=== PATIENT | male | born 1950 | race Caucasian/White ===

== ENCOUNTER 2023-04-23 08:33 | Outpatient (CLI) | payer OTHER ==
[~2023-04-23] VITALS: Ht 185.4 cm; Wt 75.7 kg
[2023-04-23] MEDS ORDERED: albuterol 2.5 MG/3 ML nebule NEB ONE (09:05)
[2023-04-23 09:09] VITALS: PULSE 99; RESP 16; O2SAT 98
[2023-04-23 10:33] LABS: ALANINE AMINOTRANSFERASE 17 U/L (12-78); ALBUMIN 3.5 G/DL (3.4-5.0); ALKALINE PHOSPHATASE 57 IU/L (46-116); ANION GAP 7 (8-16); ASPARTATE AMINO TRANSFERASE 16 U/L (10-37); BILIRUBIN,TOTAL 0.6 MG/DL (0.1-1.0); BLOOD UREA NITROGEN 19 MG/DL (7-18); BUN/CREATININE RATIO 15.8 (10.0-20.0); CHLORIDE 102 MMOL/L (99-107); POTASSIUM 3.7 MMOL/L (3.5-5.1); SODIUM 138 MMOL/L (135-145); TOTAL CARBON DIOXIDE 29.1 MMOL/L (24-32); eCRCL 58 ML/MIN; eGFR 59 ML/MIN
[2023-04-23 10:45] LABS: GLUCOSE 101 MG/DL (70-104)
== END 2023-04-23 23:59 | disposition home or self-care (01) ==
LOC: RT 08:33
PROVIDERS: ATTEND Chiropractor
DX: J44.9 Chronic obstructive pulmonary disease, unspecified (principal); D47.2 Monoclonal gammopathy
CPT/HCPCS: 36415; 71046; 80053; 94060; 94760

== ENCOUNTER 2025-03-23 11:00 | Day surgery (SDC) | payer MEDICARE, OTHER ==
[2025-03-23] MEDS ORDERED: CETI10TA19 PO (12:00)
[2025-03-23] MEDS ORDERED: MULT-227 PO (12:00)
[2025-03-23] MEDS ORDERED: MELA1TAB52 PO (12:00)
[2025-03-23] MEDS ORDERED: SAW PALMETTO PO (12:00)
[2025-03-23] MEDS ORDERED: FISH OIL PO (12:00)
[2025-03-23] MEDS ORDERED: CYAN10007 INJ (12:03)
[2025-03-23 12:30] VITALS: RESP 15; O2SAT 96
[2025-03-23 14:15] VITALS: BP 144/91; PULSE 88; RESP 14; O2SAT 94
--- NOTE | 2025-03-23 14:23 | PROGRESS NOTE ---
H&P - Interval Note Providers to CC ~ Patient examined and condition: Yes Interval changes as follows: Paper H and P now in chart today, left mid thyroid nodule TRADS 4 measures 2.8cm max dimension. Risks benefits alt of FNA D/W patient and informed consent disclosed. Note he has a 2.3 cm RIGHT thyroid nodule TRADS 3 that is in criteria for observation since less than 2.5cm. Rec. 6 month follow up scan. BOBBY ANNE MD Mar 23, 2025 14:23
--- NOTE | 2025-03-23 14:24 | PROGRESS NOTE ---
Progress Note - Angio Providers to CC ~ Angio Progress Note: Mid left thyroid nodule 2.8cm FNA 5 passes. No immed complications, EBL less than 2cc. Dictated. BOBBY ANNE MD Mar 23, 2025 14:24
[2025-03-23 14:25] VITALS: BP 132/85; PULSE 89; RESP 13; O2SAT 94
[2025-03-23 14:35] VITALS: BP 128/81; PULSE 87; RESP 13; O2SAT 95
--- NOTE | 2025-03-23 17:04 | RADIOLOGY REPORT ---
BIOPSY LEFT THYROID NODULE APPROXIMATELY 2.8 CM Clinical indications: MALIGNANT NEOPLASM OF PROSTATE, family history of multiple cancers. Left thyroid nodule TI RADS 4 category lesion with macrocalcifications. A surgical timeout was performed. Utilizing ultrasound guidance and 25-gauge needles, 5 total passes for FNA of the 2.8 cm in size left thyroid nodule was performed. This represented a TI RADS 4 category lesion based upon prior outside hospital ultrasound neck dated January 10, 2025. The samples were placed on slides as well as placed in Carbo wax and sent to laboratory for analysis. There were no immediate comp occasions. Estimate blood loss less than 3 cc. A total of 2 cc 1% lidocaine solution used for local anesthesia. Real-time ultrasound imaging of the thyroid after biopsy with color Doppler imaging demonstrated no evidence of extravasation or hematoma. IMPRESSION: Status post FNA mid left thyroid lobe nodule measuring approximately 2.8 cm x 2.1 cm x 2.8 cm in size. Note that the patient has a TI RADS level 3 nodule in the lower pole the right lobe which measured 23 mm on prior examination therefore fitting criteria for observation rather than biopsy which is indicated after 25 mm. I recommend a 6 month interval ultrasound from today's date to follow-up both nodules.
== END 2025-03-23 14:40 | disposition home or self-care (01) ==
LOC: SSTAY O 11:00
PROVIDERS: ATTEND Registered Nurse
DX: E04.1 Nontoxic single thyroid nodule (principal); C61 Malignant neoplasm of prostate; Z79.899 Other long term (current) drug therapy; Z88.8 Allergy status to other drugs, medicaments and biological substances
CPT/HCPCS: 10005; 88173; C1729